=== PATIENT | male | born 1995 | race African-American/Black ===

== ENCOUNTER 2017-10-29 18:22 | Emergency (ER) | payer OTHER ==
[2017-10-29] MEDS: IBUPROFEN 800 MG TAB PO (19:15)
[2017-10-29 20:02] LABS: INFLUENZA A AMPLIFICATION NEGATIVE (NEGATIVE); INFLUENZA B AMPLIFICATION NEGATIVE (NEGATIVE)
== END 2017-10-29 20:47 | disposition home or self-care (01) ==
LOC: M ED 18:22
DX: R51 Headache (principal); F17.200 Nicotine dependence, unspecified, uncomplicated
CPT/HCPCS: 87502